=== PATIENT | male | born 1975 | race Caucasian/White ===

== ENCOUNTER → 2018-06-05 | Outpatient (CLI) | payer OTHER | END | disposition home or self-care (01) | LOC: KCIC MRI 14:45 | DX: M51.36 Other intervertebral disc degeneration, lumbar region (principal); M51.37 Other intervertebral disc degeneration, lumbosacral region (principal); M43.16 Spondylolisthesis, lumbar region; M48.07 Spinal stenosis, lumbosacral region | CPT/HCPCS: 72148 ==

== ENCOUNTER → 2018-06-20 | Outpatient (CLI) | payer OTHER | END | disposition home or self-care (01) | LOC: PNCL 08:16 | DX: M79.604 Pain in right leg (principal); M54.5 Low back pain | CPT/HCPCS: 99214 ==

== ENCOUNTER → 2018-07-04 | Outpatient (CLI) | payer OTHER ==
[~2018-07-04] MED LIST: IOHEXOL 180 MG/ML 10 ML VIAL.; LIDOCAINE 2% PF 2ML VIAL.; methylPREDNISolone ACETATE 40 MG/ML VIAL.; methylPREDNISolone ACETATE 80 MG/ML VIAL.
== END | disposition home or self-care (01) ==
LOC: PNCL 07:33
DX: M51.16 Intervertebral disc disorders with radiculopathy, lumbar region (principal); M48.061 Spinal stenosis, lumbar region without neurogenic claudication; M43.16 Spondylolisthesis, lumbar region
CPT/HCPCS: 62323; J1030; J1040; J2001; Q9965

== ENCOUNTER → 2018-08-06 | Outpatient (CLI) | payer OTHER ==
[~2018-08-06] MED LIST changes: +CYCL5TAB PO; +IBUP200T44 PO; -IOHEXOL 180 MG/ML 10 ML VIAL.; -LIDOCAINE 2% PF 2ML VIAL.; -methylPREDNISolone ACETATE 40 MG/ML VIAL.; -methylPREDNISolone ACETATE 80 MG/ML VIAL.
--- NOTE | 2018-08-06 10:56 | PAIN ---
DATE OF SERVICE: 08/06/2018 PROGRESS NOTE FOR PAIN CLINIC DIAGNOSES: Lumbar radiculopathy with lumbar degenerative disk disease and lumbar spinal stenosis. HISTORY OF PRESENT ILLNESS: The patient is a 43-year-old male who returns for followup status post lumbar epidural steroid injection x 1. The patient reports about 65% improvement after the first injection. The pain is in the low back and right leg. The right leg is doing much better and still some pain in the low back, however, and into the right hip. The patient reports it is stabbing, aching, dull, rated as a 4 on a scale of 10 at its worst, 3 on average and at 2 at its least. The patient reports no new motor or sensory deficits and no new bowel or bladder incontinence or other complaints. He was increasing his activities, greater distance walking, able to return to work duties with much greater ease and comfort as well as household activities and recreational activities as without much difficulty after the injection. The patient reports still some significant pain but still lasting and it has been over 4 weeks now since the injection. The patient reports no new motor or sensory deficits and no new bowel or bladder incontinence or other complaints. He is quite pleased with his progress thus far. PHYSICAL EXAMINATION: VITAL SIGNS: The patient's blood pressure 116/79, pulse 84, respirations 18, temperature 98.2 degrees Fahrenheit, height is 5 feet 11 inches and weighs 197 pounds. GENERAL: The patient is awake, alert, oriented, appropriate and very pleasant demeanor. HEENT: Head is normocephalic and atraumatic. Extraocular movements are intact and symmetrical. Oral cavity, mucous membranes are moist and pink. Dentition is intact. NECK: Shows anterior throat supple without palpable lymphadenopathy noted. Swallow reflex symmetrical. CHEST: Shows normal with inspection. Breath sounds clear to auscultation bilaterally. HEART: Shows S1 and S2 clear. No murmurs auscultated. ABDOMEN: Soft, nontender and nondistended. No palpable organomegaly is noted. No rebound or guarding demonstrated. BACK: Shows spine grossly in the midline. Normal appearing thoracic kyphosis and lumbar lordotic curvature. Lumbar paraspinous muscle shows symmetrical on inspection and palpation shows some moderate tenderness but only diffusely in the low lumbar distribution of the paraspinous muscles bilaterally but only diffusely without radiation though. No atrophy or hypertrophy, no trigger points and no radiation. The patient has good rotational motion of the lumbar spine, both laterally as well as extension and flexion without significant pain reported. EXTREMITIES: Lower extremities show deep tendon reflexes at 2+ in the patella and 1+ tendo-calcaneus tendons. Motor exam is approximately 4 on scale 5 with right dorsiflexion and extension and 5/5 on the left. Peripheral pulses are 1+, posterior tibia. No peripheral edema is noted bilaterally. Options were discussed with the patient. The patient's old chart was reviewed as well as his current medication regimen updated. Current review of systems updated today as well and we will preauthorize the patient for a second lumbar epidural steroid injections as he did very well with the first one, still with L5-S1 radicular pattern in the right side but significantly improved about 65% after the first injection without new deficits. The patient will continue to do physical therapy exercises on his own. He is doing stretching and strengthening exercises every morning as well as walking as much as he can tolerate on a routine basis. The patient will return to the clinic. We will plan on lumbar epidural steroid injection #2 at that time. JORGE GONZÁLES MD DR: SUSAN/ramin JOB#: [id number] / [id number]
== END | disposition home or self-care (01) ==
LOC: PNCL 07:42
PROVIDERS: ATTEND Anesthesiology
DX: M51.16 Intervertebral disc disorders with radiculopathy, lumbar region (principal); M48.061 Spinal stenosis, lumbar region without neurogenic claudication
CPT/HCPCS: 99212

== ENCOUNTER → 2018-08-21 | Outpatient (CLI) | payer OTHER ==
[~2018-08-21] MED LIST changes: +IOHEXOL 180 MG/ML 10 ML VIAL. ONE; +LIDOCAINE 2% PF 2ML VIAL. ONE; +methylPREDNISolone ACETATE 40 MG/ML VIAL. ONE; +methylPREDNISolone ACETATE 80 MG/ML VIAL. ONE
--- NOTE | 2018-08-21 20:25 | PAIN ---
DATE OF SERVICE: 08/21/2018 PROGRESS NOTE OR PAIN CLINIC DIAGNOSES: Lumbar radiculopathy with lumbar degenerative disk disease and lumbar spinal stenosis extremity. HISTORY OF PRESENT ILLNESS: The patient is a 43-year-old male who returns for followup status post preauthorization for a second injection after good response about 75% improvement after his first injection. The patient returns now wishing to proceed, still pain in the low back and more into the right than the left lower extremity radiating to the posterior gluteus, posterior thigh and posterior calf. The patient reports it is aching, becoming sharp and some stabbing pain as well. Still improved from his previous injection but still beginning to return. The patient reports it is a 4 on a scale of 10 at its worst, 3 on average, 2 at its least and is a 3 today. The patient reports it is aching and sharp in the low back and the right leg as described. The patient reports no new motor or sensory deficit and does not awaken him from sleep at night. No bowel or bladder incontinence. PHYSICAL EXAMINATION: VITAL SIGNS: The patient's blood pressure 125/78, pulse 85, respirations 16, temperature is 98.9 degrees Fahrenheit and weight is 201 pounds. GENERAL: The patient is awake, alert, oriented, appropriate and very pleasant demeanor. HEENT: Head shows normocephalic and atraumatic. Extraocular movements are intact and symmetrical. Oral cavity: Mucous membranes moist and pink. Dentition is intact. NECK: Shows anterior throat supple without palpable lymphadenopathy noted. Swallow reflex is symmetrical. CHEST: Shows normal on inspection. Breath sounds clear to auscultation bilaterally. HEART: Shows S1 and S2 clear. No murmurs auscultated. ABDOMEN: Soft, nontender and nondistended. No palpable organomegaly is noted. No rebound or guarding demonstrated. BACK: Shows spine grossly in the midline. Normal appearing thoracic kyphosis and lumbar lordotic curvature. Lumbar paraspinous muscle shows symmetrical on inspection, on palpation shows some moderate tenderness but only diffusely bilaterally but without radiation. The patient has good rotational motion of lumbar spine, both laterally as well as extension and flexion without difficulty. EXTREMITIES: Lower extremities show deep tendon reflexes 2+ in the patellar, 1+ tendo-calcaneus tendons. Motor exam is strong with approximately 4 on a scale of 5 dorsiflexion, extension on the right, 5/5 on the left. Peripheral pulses are 1+ posterior tibia. No peripheral edema is noted. Options were discussed with the patient. The patient's old chart was reviewed as well as his current medication regimen updated. Current review of systems updated today as well. We will proceed with a second in the series of lumbar epidural steroid injection today with fluoroscopic guidance. Risks were discussed including but not limited to bleeding, infection, possibility of epidural hematoma and subsequent neurological compromise, dural puncture, headaches, spinal cord and/or nerve damage, side effects of steroid medication and poor results regarding pain control. The patient understands and wished to proceed. The patient will return to the clinic in approximately 2 weeks for followup, was counseled as to return appointment, activity level and side effects to be aware of. DIAGNOSES: Lumbar radiculopathy with lumbar degenerative disk disease and lumbar spinal stenosis. PROCEDURE: Lumbar epidural steroid injection, translaminar approach, L5-S1 level using C-arm fluoroscopic guidance under sterile prep and drape using local anesthetic. MEDICATION INJECTED: A total of 120 mg Depo-Medrol plus 10 mL of preservative-free normal saline and 2 mL of Isovue for contrast. CONDITION AT DISCHARGE: Stable. The patient tolerated the procedure well and had no complications. JORGE GONZÁLES MD DR: SUSAN/ramin JOB#: [id number] / [id number]
== END | disposition home or self-care (01) ==
LOC: PNCL 14:33
PROVIDERS: ATTEND Anesthesiology
DX: M51.16 Intervertebral disc disorders with radiculopathy, lumbar region (principal); M48.061 Spinal stenosis, lumbar region without neurogenic claudication
CPT/HCPCS: 62323; J1030; J1040; J2001; Q9965

== ENCOUNTER → 2018-09-25 | Outpatient (CLI) | payer OTHER ==
[~2018-09-25] MED LIST changes: -IOHEXOL 180 MG/ML 10 ML VIAL. ONE; -LIDOCAINE 2% PF 2ML VIAL. ONE; -methylPREDNISolone ACETATE 40 MG/ML VIAL. ONE; -methylPREDNISolone ACETATE 80 MG/ML VIAL. ONE
--- NOTE | 2018-09-25 21:29 | PAIN ---
DATE OF SERVICE: 09/25/2018 PROGRESS NOTE FOR PAIN CLINIC DIAGNOSIS: Lumbar radiculopathy with lumbar degenerative disk disease and lumbar spinal stenosis. HISTORY OF PRESENT ILLNESS: The patient is a 43-year-old male who returns for followup status post lumbar epidural steroid injection x 2. The patient reports about 75% improvement initially, but the pain is wearing off fairly quickly. The patient had injection done on 08/21. Reports after about 3 weeks, the pain returned fairly significant in the low back into the right side, right lower extremity, mostly in the lateral thigh, anterior thigh, medial thigh as well as the posterior thigh on the right side. The patient reports it is aching, sharp, shooting, stabbing, becoming more constant, rates as a 6 on a scale 10 at its worst, 4 on average and a 3 at its least and is a 4 today. The patient reports no new motor or sensory deficits, does not awaken him from sleep at night, worse with walking, standing, changing positions and getting up from a chair. He feels it is radiating into his right leg, but better with lying down, does not awaken him from sleep. The patient reports no new motor or sensory deficits, no new bowel or bladder incontinence or other complaints. PHYSICAL EXAMINATION: VITAL SIGNS: The patient's blood pressure is 123/84, pulse 107, respirations 18, temperature 98.2 degrees Fahrenheit, weight is 204 pounds. GENERAL: The patient is awake, alert, oriented, appropriate, very pleasant demeanor. HEENT: Head shows normocephalic, atraumatic. Extraocular movements are intact and symmetrical. Oral cavity: Mucous membranes are moist and pink. Dentition is intact. NECK: Shows anterior throat supple without palpable lymphadenopathy noted. Swallow reflex is symmetrical. CHEST: Shows normal on inspection. Breath sounds are clear to auscultation bilaterally. HEART: Shows S1, S2 clear. No murmurs auscultated. ABDOMEN: Soft, nontender, nondistended. No palpable organomegaly is noted. No rebound or guarding demonstrated. BACK: Shows spine grossly in the midline. Normal appearing thoracic kyphosis and lumbar lordotic curvature. Lumbar paraspinous muscle shows symmetrical on inspection, on palpation shows some moderate tenderness diffusely bilaterally, but only diffusely without radiation. The patient has good rotational motion of lumbar spine, both laterally as well as extension and flexion without difficulty. EXTREMITIES: The patient's lower extremities show deep tendon reflexes 2+ in the patellar and tendo calcaneus tendons. Motor exam is strong with 5/5 dorsiflexion, extension, quadriceps and hamstring flexion and symmetrical bilaterally. Peripheral pulses are 1+ posterior tibia. No peripheral edema is noted. Options were discussed with the patient. The patient's old chart was reviewed as his current medication regimen updated. Current review of systems updated today as well and we will proceed with a preauthorization for a third lumbar epidural steroid injection as the patient still with some significant radicular pain in the right lower extremity in L4 dermatomal pattern, but doing quite a bit better initially after the last injection. The patient will continue with strengthening and stretching exercises on his own as well as walking daily as tolerated as he has been doing. We will see him back in approximately 2 weeks and plan on third lumbar epidural steroid injection at that time. JORGE GONZÁLES MD DR: SUSAN/ramin JOB#: [id number] / [id number]
== END | disposition home or self-care (01) ==
LOC: PNCL 07:43
PROVIDERS: ATTEND Anesthesiology
DX: M51.16 Intervertebral disc disorders with radiculopathy, lumbar region (principal); M48.061 Spinal stenosis, lumbar region without neurogenic claudication
CPT/HCPCS: 99212

== ENCOUNTER → 2018-10-09 | Outpatient (CLI) | payer OTHER ==
[~2018-10-09] MED LIST changes: +IOHEXOL 180 MG/ML 10 ML VIAL. ONE; +methylPREDNISolone ACETATE 40 MG/ML VIAL. ONE; +methylPREDNISolone ACETATE 80 MG/ML VIAL. ONE
--- NOTE | 2018-10-10 01:39 | PAIN ---
DATE OF SERVICE: 10/09/2018 PROGRESS NOTE FOR PAIN CLINIC DIAGNOSES: Lumbar radiculopathy with lumbar degenerative disk disease and lumbar spinal stenosis. HISTORY OF PRESENT ILLNESS: The patient is a 43-year-old male who returns for followup status post lumbar epidural steroid injection x 2. The patient reports about 75% improvement initially after his last injection, but the pain is returning now in the low back and right lower extremity as was previously about 25% overall at this time. The patient reports the pain is 7 on a scale of 10 at its worst, 3 at its least and 4 at its average and is a 4 today. The patient reports it is in the low back, right lower extremity, posterior gluteus bilaterally into the right posterior thigh, lateral thigh, anterior medial thigh, aching, sharp, dull, tight, shooting, but reports it is becoming more constant and worse with activity. The patient reports no new motor or sensory deficits and no new bowel or bladder incontinence or other complaints, has had difficulty with getting comfortable at night to get some sleep because of the pain as well, especially when he lies on his right side. PHYSICAL EXAMINATION: VITAL SIGNS: The patient's blood pressure is 117/72, respirations 16, pulse is 80 and temperature is 98.3 degrees Fahrenheit. Height is 5 feet 11 inches and weight is 209 pounds. GENERAL: The patient is awake, alert, oriented, appropriate and very pleasant demeanor. HEENT: Head shows normocephalic and atraumatic. Extraocular movements are intact and symmetrical. Oral cavity: Mucous membranes are moist and pink. Dentition is intact. NECK: Shows anterior throat supple without palpable lymphadenopathy noted. Swallow reflex is symmetrical. CHEST: Shows normal on inspection. Breath sounds clear to auscultation bilaterally. HEART: Shows S1 and S2 clear. No murmurs auscultated. ABDOMEN: Soft, nontender and nondistended. No palpable organomegaly is noted. No rebound or guarding demonstrated. BACK: Shows spine grossly in the midline. Normal appearing thoracic kyphosis and lumbar lordotic curvature. Lumbar paraspinous musculature shows symmetrical on inspection, with palpation shows some moderate tenderness in the upper, middle and lower distribution of the paraspinous muscles but only diffusely without radiation. The patient has good rotational motion both laterally as well as extension and flexion of the lumbar spine without difficulty. EXTREMITIES: Lower extremities show deep tendon reflexes at 2+ in the patellar and 1+ tendo-calcaneus tendons are equal. Motor exam is approximately 4 on a scale of 5 with right dorsiflexion and extension, 5/5 on the left as well as quadriceps and hamstring flexion, 4/5 right and 5/5 left. Peripheral pulses are 1+ posterior tibia. No peripheral edema is noted bilaterally. Options were discussed with the patient. The patient's old chart was reviewed as well as his current medication regimen updated. Current review of systems updated today as well. We will proceed with a third in the series of lumbar epidural steroid injection today with fluoroscopic guidance. Risks were again discussed including, but not limited to bleeding, infection, possibility of epidural hematoma and subsequent neurological compromise, dural puncture, headaches, spinal cord and/or nerve damage, side effects of steroid medication and poor results regarding pain control. The patient understands and wished to proceed. The patient will return to the clinic in approximately 2 weeks for followup, was counseled as to return appointment, activity level and side effects to be aware of. DIAGNOSES: Lumbar radiculopathy with lumbar degenerative disk disease and lumbar spinal stenosis. PROCEDURE: Lumbar epidural steroid injection, translaminar approach at the L3-L4 level using C-arm fluoroscopic guidance under sterile prep and drape using local anesthetic. MEDICATION INJECTED: A total of 120 mg Depo-Medrol plus 10 mL of preservative-free normal saline and 2 mL of Isovue for contrast. CONDITION AT DISCHARGE: Stable. The patient tolerated the procedure well and had no complications. JORGE GONZÁLES MD DR: SUSAN/ramin JOB#: [id number] / [id number]
== END | disposition home or self-care (01) ==
LOC: PNCL 14:33
PROVIDERS: ATTEND Anesthesiology
DX: M51.16 Intervertebral disc disorders with radiculopathy, lumbar region (principal); M48.061 Spinal stenosis, lumbar region without neurogenic claudication; Z79.899 Other long term (current) drug therapy; Z79.1 Long term (current) use of non-steroidal anti-inflammatories (NSAID); Z98.890 Other specified postprocedural states
CPT/HCPCS: 62323; J1030; J1040; Q9965